=== PATIENT | female | born 1950 | race Caucasian/White ===

== ENCOUNTER 2020-12-20 15:20 | Outpatient (CLI) | payer BC | END 2020-12-20 15:21 | disposition home or self-care (01) | LOC: CSHMRI 15:20 | PROVIDERS: ATTEND Specialist | DX: M51.16 Intervertebral disc disorders with radiculopathy, lumbar region (principal); M47.816 Spondylosis without myelopathy or radiculopathy, lumbar region; M51.36 Other intervertebral disc degeneration, lumbar region; M51.37 Other intervertebral disc degeneration, lumbosacral region; Z98.890 Other specified postprocedural states | CPT/HCPCS: 72120; 72158; 82565 ==